=== PATIENT | female | born 1975 | race Caucasian/White ===

== ENCOUNTER 2016-06-17 10:15 | Emergency (ER) | payer BC ==
[2016-06-17 10:19] VITALS: TEMP 97.7; O2SAT 95
--- NOTE | 2016-06-17 11:11 | EDPHY ---
H & P Time Seen by Provider: 06/17/16 10:23 HPI/ROS: CHIEF COMPLAINT: right eye pain HISTORY OF PRESENT ILLNESS: Patient is a 41-year-old female who presents emergency department with right eye pain starting this morning. She states the right eye is more tearful than normal. It is painful. She has mild blurred vision. She has not had this previously. No fevers or chills. No nausea or vomiting. Patient has had previous Lasik but this is remote. REVIEW OF SYSTEMS: My complete review of systems is negative except as mentioned in the HPI. Past Medical/Surgical History: Depression, anxiety Past surgical history: Lasix Smoking Status: Never smoked Physical Exam: Vitals noted GENERAL: Well-appearing, in no acute distress, alert. Visual acuity: Noted. Eyelids: Normal inspection, everted for exam. Conjunctiva and sclera: Normal inspection. No foreign material. No subconjunctival hemorrhage. No exudate. Not injected. Corneas: Normal inspection. Examined with fluorescein dye: No uptake, abrasion, or ulcer. EOMs: Intact. Pupils: PERRL, normal accommodation. Anterior chambers: Normal inspection. No hyphema. No cells or flare. Posterior segments: Normal funduscopic exam Tonopen measurement: 4, 4 right eye Constitutional: Initial Vital Signs Temperature (C) 36.5 C 06/17/16 10:15 Heart Rate 79 06/17/16 10:15 Respiratory Rate 6 L 06/17/16 10:15 Blood Pressure 101/64 06/17/16 10:15 O2 Sat (%) 95 06/17/16 10:15 O2 Delivery Mode Room Air Allergies/Adverse Reactions: No Known Allergies Allergy (Unverified 06/17/16 10:17) Home Medications: Medication Instructions Recorded Zoloft 100mg (*) 06/17/16 Medical Decision Making ED Course/Re-evaluation: In the emergency department I performed my evaluation the patient's eye. I discussed possible etiologies and answer questions. I rechecked the patient on numerous occasions. I discussed the case with Dr. Rosa from Ophthalmology. She will see the patient tomorrow in her office. Patient was given warnings prior to leaving. She will discontinue the new makeup she is currently wearing. Differential Diagnosis: My differential includes but is not limited to glaucoma, foreign body, conjunctivitis, iritis, hyphema, CVA - Data Points Medications Given: Discontinued Medications Fluorescein Sodium ([id number]) 1 mg OP EDNOW ONE Stop: 06/17/16 11:42 Last Admin: 06/17/16 11:43 Dose: 1 mg Proparacaine HCl (Alcaine 0.5%) 1 drops RTEYE ONCE ONE Stop: 06/17/16 11:43 Last Admin: 06/17/16 11:43 Dose: 1 drop Departure - Departure Disposition: Home, Routine, Self-Care Clinical Impression: Pain, eye, right Condition: Good Instructions: Eye Pain (ED) Additional Instructions: You need close follow-up with Dr. Alvarado tomorrow. Call or office 1st thing in the morning. Return to the emergency department sooner with increasing pain, visual change, or any other concerns. Referrals: Gayla Rosa MD [Non Staff Provider ()] - 06/18/16
[2016-06-17] MEDS ORDERED: PROPARACAINE 0.5% 15 ML OPHT DROP ONE (11:14)
[2016-06-17] MEDS ORDERED: FLUORESCEIN SODIUM 1 MG STRIP OP ONE ×2 (11:14→11:41)
[2016-06-17] MEDS ORDERED: PROPARACAINE 0.5% 15 ML OPHT DROP RTEYE ONE (11:42)
[2016-06-17 12:25] VITALS: BP 104/77; PULSE 64; RESP 18
== END 2016-06-17 12:23 | disposition home or self-care (01) ==
DX: H57.11 Ocular pain, right eye (principal)